=== PATIENT | female | born 1960 | race Native Hawaiian/Other Pacific Islander ===

== ENCOUNTER 2017-05-18 09:26 | Outpatient (CLI) | payer OTHER | END 2017-05-18 19:30 | disposition home or self-care (01) | LOC: MAMMO 09:26 | DX: Z12.31 Encounter for screening mammogram for malignant neoplasm of breast (principal) ==

== ENCOUNTER 2018-03-28 11:16 | Outpatient (CLI) | payer OTHER | END 2018-03-28 23:56 | disposition home or self-care (01) | LOC: RAD 11:16 | DX: J40 Bronchitis, not specified as acute or chronic (principal) ==

== ENCOUNTER 2018-06-01 09:57 | Outpatient (CLI) | payer OTHER | END 2018-06-01 21:12 | disposition home or self-care (01) | LOC: MAMMO 09:57 | DX: Z12.31 Encounter for screening mammogram for malignant neoplasm of breast (principal) ==

== ENCOUNTER 2019-07-18 14:46 | Outpatient (CLI) | payer OTHER | END 2019-07-18 19:38 | disposition home or self-care (01) | LOC: MAMMO 14:46 | DX: Z12.31 Encounter for screening mammogram for malignant neoplasm of breast (principal) ==

== ENCOUNTER 2020-10-14 10:58 | Outpatient (CLI) | payer OTHER | END 2020-10-14 22:12 | disposition home or self-care (01) | LOC: INF 10:58 | PROVIDERS: ATTEND Internal Medicine | DX: Z23 Encounter for immunization (principal) | CPT/HCPCS: 96372 ==

== ENCOUNTER 2020-11-05 10:50 | Outpatient (CLI) | payer OTHER | END 2020-11-05 22:19 | disposition home or self-care (01) | LOC: INF | PROVIDERS: ATTEND Internal Medicine | DX: Z23 Encounter for immunization (principal) | CPT/HCPCS: 96372 ==

== ENCOUNTER 2021-06-28 13:04 | Outpatient (CLI) | payer OTHER | END 2021-06-28 21:03 | disposition home or self-care (01) | LOC: MAMMO 13:04 | PROVIDERS: ATTEND Nurse Practitioner | DX: Z12.31 Encounter for screening mammogram for malignant neoplasm of breast (principal) ==

== ENCOUNTER 2022-06-29 12:27 | Outpatient (CLI) | payer OTHER | END 2022-06-29 19:39 | disposition home or self-care (01) | LOC: MAMMO 12:27 | PROVIDERS: ATTEND Nurse Practitioner Family | DX: Z12.31 Encounter for screening mammogram for malignant neoplasm of breast (principal) ==

== ENCOUNTER 2022-08-30 12:44 | Outpatient (CLI) | payer OTHER | END 2022-08-30 19:22 | disposition home or self-care (01) | LOC: MAMMO 12:44 | PROVIDERS: ATTEND Registered Nurse | DX: R92.8 Other abnormal and inconclusive findings on diagnostic imaging of breast (principal) ==